=== PATIENT | male | born 1940 | race African-American/Black ===

== ENCOUNTER → 2017-06-01 | Outpatient (CLI) | payer MEDICARE, BC ==
[2014-06-24 12:48] VITALS: BP 114/65
[~2017-06-01] MED LIST: ACET500T68 PO; ASPI-482 PO; MULT-697 PO; OMEG1CAP6 PO; TAMS0.4C97 PO
[2017-06-01 09:26] LABS: BASO % 1 % (0-3); EOS % 1 % (0-3); HEMATOCRIT 38.4 % (39.0-53.0); HEMOGLOBIN 12.6 g/dL (13.0-17.5); LYMPH # 1.9 x10^3/uL (1.0-4.8); LYMPH % 48 % (24-48); MEAN CORPUSCULAR HEMOGLOBIN 27 pg (25-35); MEAN CORPUSCULAR HGB CONC 33 g/dL (31-37); MEAN CORPUSCULAR VOLUME 83 fL (79-100); MONO % 11 % (0-9); NEUT % 40 % (31-73); PLATELET COUNT 210 x10^3/uL (140-400); RED CELL DISTRIBUTION WIDTH 14.7 % (11.5-14.5); WHITE BLOOD COUNT 4.1 x10^3/uL (4.0-11.0)
[2017-06-01 09:33] LABS: ALBUMIN 3.6 g/dL (3.4-5.0); CALCIUM 9.1 mg/dL (8.5-10.1); CREATININE 1.3 mg/dL (0.7-1.3); GFR 65.1; POTASSIUM 4.3 mmol/L (3.5-5.1)
[2017-06-01 09:40] LABS: PROTHROMBIN TIME PATIENT 12.3 SEC (11.7-14.0)
[2017-06-01 11:05] LABS: BILIRUBIN,URINE NEGATIVE (NEG); GLUCOSE,URINE NEGATIVE (NEG); NITRITE,URINE NEGATIVE (NEG); PH,URINE 5.5; PROTEIN,URINE NEGATIVE (NEG-TRACE); UROBILINOGEN,URINE 0.2 mg/dL (0.2 mg/dL)
[2017-06-01 11:31] LABS: BACTERIA,URINE FEW /HPF (0-FEW); RBC,URINE RARE /HPF (0-2); WBC,URINE RARE /HPF (0-4)
--- NOTE | 2017-06-01 16:57 | RAD ---
Indication preop. Anticipated hip replacement. Frontal and lateral views of the chest were obtained and are compared to an examination 10/31/2004. The heart and pulmonary vessels appear normal. The lungs are clear of acute infiltrates. Chronic changes are noted about the left shoulder. A significant change in the appearance of the chest is not seen. IMPRESSION: No acute finding in the chest
== END | disposition home or self-care (01) ==
LOC: SURGPAT 14:11
PROVIDERS: ATTEND Orthopaedic Surgery Sports Medicine
DX: Z01.818 Encounter for other preprocedural examination (principal); R07.9 Chest pain, unspecified; Z72.0 Tobacco use
CPT/HCPCS: 36415; 71020; 80048; 81001; 82040; 85025; 85610; 85651; 85730; 87641

== ENCOUNTER 2017-06-15 08:54 | Inpatient (IN) | payer MEDICARE, BC ==
[2017-06-15] VITALS (7 sets, daily range): BP systolic 115–139; BP diastolic 72–87
[~2017-06-15] VITALS: Ht 170.2 cm; Wt 94.3 kg
[~2017-06-15 08:54] MED LIST changes: +BACITRACIN 50,000 UNIT in IV NORMAL SALINE 1000ML BAG 1,000 ML IRR ONE; +DEXAMETHASONE SOD PHOS 20 MG/5 ML VIAL. ONE; +HYDROcodone/APAP 7.5/325MG 1 TAB TABLET PO PRN; +HYDROmorphone 2 MG/ML VIAL IV PRN; +IV RINGERS,LACTATED 1000ML 1,000 ML IV SCH; +LIDOCAINE 1% PF 2 ML VIAL. ID PRN; +LIDOCAINE 2% PF Vial for OR 5 ML VIAL. ONE; +MELOXICAM 7.5 MG TABLET PO PRN; +MORPHINE SULFATE 4 MG/ML DISP.SYRIN. IV PRN; +MORPHINE SULFATE 5 MG, KETOROLAC 30 MG, ROPIVacaine 0.5% PF 60 ML, EPINEPHrine 0.5 MG i... INT ART ONE; +ONDANSETRON PF 4 MG/2 ML VIAL. IV PRN; +ONDANSETRON PF 4 MG/2 ML VIAL. ONE; +PHENYLEPHRINE in 0.9% NACL PF 1 MG/10 ML DISP.SYRIN. IV ONE; +PROCHLORPERAZINE 10 MG/2 ML VIAL. IV PRN; +PROPOFOL 20 ML IV ONE; +SUCCINYLCHOLINE 200 MG/10 ML VIAL. ONE; +TRANEXAMIC ACID 1,000 MG in IV NS 50ML -- 1ST BAG INJ ONE; +TRANEXAMIC ACID 1,000 MG in IV NS 50ML -- 2ND BAG INJ ONE; +fentaNYL PF VIAL 100 MCG/2 ML VIAL IV PRN; +fentaNYL PF VIAL 100 MCG/2 ML VIAL ONE
--- NOTE | 2017-06-15 09:27 | PDOC ---
BRIEF OPERATIVE NOTE Date: Jun 15, 2017 Pre-Op Diagnosis L hip DJD Post-Op Diagnosis same Procedure Performed L SUMAYA Surgeon Crystal Acct Exec Jayden Anesthesiologist Edenilson Anesthesia Type: General, Local Blood Loss see op report Complications none MARTIN SEAY II, MD Jun 15, 2017 09:27
[2017-06-15] MEDS ORDERED: fentaNYL PF VIAL 100 MCG/2 ML VIAL IV PRN ×2 (09:30)
[2017-06-15] MEDS ORDERED: traMADol 50 MG TABLET PO PRN ×2 (09:30)
[2017-06-15] MEDS ORDERED: MORPHINE SULFATE 10 MG/ML VIAL. IV PRN (09:30)
[2017-06-15] MEDS ORDERED: PROCHLORPERAZINE 5 MG TABLET. PO PRN (09:30)
[2017-06-15] MEDS ORDERED: 0.9 % SODIUM CHLORIDE 10 ML DISP.SYRIN. IV PRN (09:30)
[2017-06-15] MEDS ORDERED: PROCHLORPERAZINE 10 MG/2 ML VIAL. IV PRN (09:30)
[2017-06-15] MEDS ORDERED: oxyCODONE/APAP 5/325 1 TAB TABLET PO PRN (09:30)
[2017-06-15] MEDS ORDERED: DEXTROSE 50% 25 GM / 50ML DISP.SYRIN. IV PRN (09:30)
[2017-06-15] MEDS ORDERED: oxyCODONE/APAP 7.5/325 1 TAB TABLET PO PRN (09:30)
[2017-06-15] MEDS ORDERED: MORPHINE SULFATE 4 MG/ML DISP.SYRIN. IV PRN ×2 (09:30)
[2017-06-15] MEDS ORDERED: CALCIUM CARBONATE 500 MG TAB.CHEW PO PRN (09:30)
[2017-06-15] MEDS ORDERED: MORPHINE SULFATE 2 MG/ML DISP.SYRIN. IV PRN (09:30)
[2017-06-15] MEDS ORDERED: HYDROcodone/APAP 10/325 1 TAB TABLET PO PRN (09:30)
[2017-06-15] MEDS ORDERED: ACETAMINOPHEN 325 MG TABLET. PO PRN (09:30)
[2017-06-15] MEDS ORDERED: ZOLPIDEM 5 MG TABLET. PO PRN (09:30)
[2017-06-15] MEDS ORDERED: METOCLOPRAMIDE HCL 10 MG/2 ML VIAL. IV PRN (09:30)
[2017-06-15] MEDS ORDERED: diphenhydrAMINE 50 MG/ML VIAL IV PRN (09:30)
[2017-06-15] MEDS ORDERED: fentaNYL PF VIAL 100 MCG/2 ML VIAL ONE (10:31)
[2017-06-15] MEDS ORDERED: NEOSTIGMINE METHYLSULFATE 5 MG/5 ML SYRINGE. ONE (10:49)
[2017-06-15] MEDS ORDERED: GLYCOPYRROLATE 1 MG/5 ML VIAL. ONE (10:49)
[2017-06-15] MEDS: fentaNYL PF VIAL 100 MCG/2 ML VIAL IV PRN ×4 (12:39→13:35)
--- NOTE | 2017-06-15 12:54 | RAD ---
Portable pelvis, 06/15/2017: History: Postop hip replacement Comparison is made to a study from 04/30/2017. A left total hip prosthesis has been placed. It appears to be in satisfactory position. There is mild to moderate degenerative change at the right hip joint. Chronic patchy sclerosis with trabecular and cortical thickening is again noted, perhaps related to the given history of sickle cell trait. Scattered arterial calcifications are present. There is no evidence of a retained surgical instrument, needle or radiopaque sponge.
--- NOTE | 2017-06-15 12:58 | OP ---
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 PROCEDURE PERFORMED: Left total hip arthroplasty. COMPLICATIONS: None. ESTIMATED BLOOD LOSS: 300 mL. COMPONENTS INSERTED: 1. Julien and Nephew size 4 standard offset Anthology femoral component with a 36 cobalt chrome -3 head. 2. A 52 mm outer diameter acetabular cup was used with a 20-degree posteriorly directed elevated liner. CLOTH OPENER HAND: Nj Carpenter. ANESTHESIA: General. COMPLICATIONS: None. REASON FOR PROCEDURE: The patient is a very pleasant 76-year-old gentleman who has tried and failed conservative therapy such as an exercise program, anti-inflammatories, and intra-articular injections for his hip pain. His pain was severe and progressive despite these conservative therapies and was interfering with his activities of daily living and therefore, we had discussion of risks, benefits, alternatives not to proceeding with the above surgery and he elected to proceed. DESCRIPTION OF PROCEDURE: The patient was greeted in the preoperative area by myself. Correct extremity was marked and verified. He was taken to the operative suite and antibiotics were started en route. Once in the OR, transferred gently supine to the OR bed and had successful induction of general anesthetic. We then proceeded to lay him in a lateral decubitus position with the left side up. All down pressure points were padded and we used an axillary roll. He was secured to the bed with our hip positioning device. We then proceeded to prep and drape left lower extremity and hip in our usual sterile fashion and conducted a standard preoperative timeout. I then palpated and marked the surface anatomy and humphrey a line for my standard posterolateral skin incision and incised skin in accordance with this. I dissected the subcutaneous tissue and cauterized bleeders as they were encountered with electrocautery. I identified the fascia and used a Do elevator to sweep aside the adherent subcutaneous tissue for later identification and repair. Padded Brendon was brought in to keep his hip abducted and I incised fascia in line with the skin incision and bluntly split the gluteus mary. I excised bursal tissue and took down the quadratus and piriformis and tagged the piriformis for later repair. I incised the hip capsule in a Z-plasty type incision and tagged the ends of this as well. I was then able to dislocate the femoral head from the acetabulum. I made jeong with electrocautery at his greater and lesser trochanter regions as well as center of his femoral head and then made my measurements for length and offset. I then palpated for his lesser trochanter and again humphrey a line with electrocautery on his femoral neck for my femoral neck cut and placed 2 Homans' behind this. I then made my neck cut and delivered the femoral head from the operative field. We then repositioned the leg and I placed my anterior and posterior acetabular retractors. I excised the labrum and the soft tissue from the fossa of the acetabulum. I identified the transverse acetabular ligament. He had some small osteophytes, which I took down posteriorly and superiorly. After this, I began reaming, referencing his jamul anatomy in the transverse acetabular ligament. I then reamed up to a size 52, which gave a good bleeding bony bed. I then impacted my cup into position using the cross bar attachment on the transverse acetabular ligament for reference. I then placed 2 screws in the posterior column. I then irrigated out the operative field and impacted my cup into position with the elevation directed posteriorly. I then repositioned leg, delivered the proximal femur in the operative field with the assistance of proximal femoral elevator. I then used a marthaie cutting osteotome to gain entry to the femur followed by a canal finding reamer. I then used a lateralizing reamer. After this, I began broaching and broached up to a size 4, which gave a good fit and fill proximally. I then trialed various head and neck sizes and felt the above combination gave best christian of intraoperative measurements on his leg length when the hip was reduced. There was no impingement anteriorly or posteriorly. I then dislocated the hip, removed all trial components and thoroughly irrigated out the operative field and femoral canal again and then impacted my stem into place. I then trialed the 0 and -3 heads again, I was unable to reduce with the [address]. I compared new measurements to my initial ones just to ensure that I had fully seated the stem which I was confident I had. I then washed and dried the Simon taper region, placed my -3 cobalt chrome head and impacted in position. I then irrigated out the acetabulum and dried it out. The hip was then reduced. Again, I was happy with the range of motion, stability, and leg length. I then closed capsule with simple interrupted #2 Ethibond. Piriformis was reapproximated through drill holes. After this, I injected my periarticular mixture and then closed the fascia with running #2 Quill. Prior to completion of wound closure, all counts were reported correct x 2. I then closed the subcutaneous tissue with inverted interrupted 2-0 Vicryl followed by running 4-0 Monocryl in a subcuticular fashion. We then applied our Julien and Nephew ELIZABETH wound dressing. The patient was then awakened from anesthesia and transferred gently supine to the recovery room cart and taken to PACU in stable and extubated condition. Postoperative plan is to admit him to the joint center for care and observation. He will receive DVT and antibiotic prophylaxis as well as therapy and IV pain medicine most likely. MARTIN SEAY MD DR: KANDI/kenzie JOB#: [id number] / [id number] LEYDI
[2017-06-15] MEDS ORDERED: IV DEXTROSE 5 %-0.45 % NACL 1,000 ML IV SCH (14:00)
[2017-06-15 16:23] LABS: INR 1.2 (0.8-1.1); PROTHROMBIN TIME PATIENT 14.6 SEC (11.7-14.0)
[2017-06-15] MEDS ORDERED: WARFARIN 7.5 MG TABLET. PO ONE ×2 (16:30→17:00)
[2017-06-15] MEDS: FERROUS SULFATE 325 MG TABLET. PO SCH (16:47)
[2017-06-15] MEDS ORDERED: KETOROLAC 30 MG, BUPIVACAINE MPF 0.25% 20 ML, EPINEPHrine 0.5 MG in TOTAL VOLUME SYRING... INT ART SCH (18:00)
[2017-06-15] MEDS: CELECOXIB 200 MG CAPSULE. PO SCH (20:36)
[2017-06-15] MEDS: HYDROcodone/APAP 7.5/325MG 1 TAB TABLET PO PRN ×2 (20:37→23:43)
[2017-06-16 02:30] VITALS: BP 112/72
[2017-06-16 03:44] LABS: HEMATOCRIT 30.6 % (39.0-53.0); HEMOGLOBIN 10.3 g/dL (13.0-17.5)
[2017-06-16 04:02] LABS: INR 1.3 (0.8-1.1)
[2017-06-16] MEDS ORDERED: MAGNESIUM HYDROXIDE 2,400 MG/30 ML ORAL.SUSP. PO PRN (06:00)
[2017-06-16 06:34] VITALS: BP 113/74
[2017-06-16] MEDS: HYDROcodone/APAP 7.5/325MG 1 TAB TABLET PO PRN ×4 (07:56→21:19)
[2017-06-16] MEDS: CELECOXIB 200 MG CAPSULE. PO SCH ×2 (07:56→21:18)
[2017-06-16] MEDS: TAMSULOSIN 0.4 MG CAP.ER.24H. PO SCH (07:56)
[2017-06-16] MEDS: SENNOSIDES/DOCUSATE 8.6/50MG TABLET. PO SCH (07:56)
[2017-06-16] MEDS: MULTIVITAMIN with MINERAL TABLET. PO SCH (07:56)
[2017-06-16] MEDS: FERROUS SULFATE 325 MG TABLET. PO SCH ×2 (07:56→17:14)
--- NOTE | 2017-06-16 08:13 | PDOC ---
ORTHO PROGRESS NOTES Subjective Pain doing ok, no complaints Vitals Vital Signs Date Time Temp Pulse Resp B/P (MAP) Pulse Ox O2 Delivery O2 Flow Rate FiO2 06/16/17 07:56 Room Air 06/16/17 06:34 98.4 61 18 113/74 (87) 97 98.4 06/15/17 15:45 10.0 Labs Laboratory Tests Test 06/15/17 09:40 06/15/17 15:30 06/16/17 03:30 Activated Partial Thromboplast Time 30 SEC (24-38) Prothrombin Time 14.6 SEC (11.7-14.0) 15.0 SEC (11.7-14.0) Prothromb Time International Ratio 1.2 (0.8-1.1) 1.3 (0.8-1.1) Hemoglobin 10.3 g/dL (13.0-17.5) Hematocrit 30.6 % (39.0-53.0) Mean Corpuscular Hemoglobin Concent 34 g/dL (31-37) Laboratory Tests Test 06/15/17 09:40 06/15/17 15:30 06/16/17 03:30 Activated Partial Thromboplast Time 30 SEC (24-38) Prothrombin Time 14.6 SEC (11.7-14.0) 15.0 SEC (11.7-14.0) Prothromb Time International Ratio 1.2 (0.8-1.1) 1.3 (0.8-1.1) Hemoglobin 10.3 g/dL (13.0-17.5) Hematocrit 30.6 % (39.0-53.0) Mean Corpuscular Hemoglobin Concent 34 g/dL (31-37) Notes A and A in bed incision ok normal motor and sensation distally Assessment and Plan PT/OT cont pain regiment MARTIN SEAY II, MD Jun 16, 2017 08:13
[2017-06-16] MEDS ORDERED: BISACODYL 10 MG SUPP.RECT. PR PRN (16:00)
[2017-06-16] MEDS ORDERED: WARFARIN 5 MG TABLET. PO ONE (16:00)
[2017-06-16 18:27] VITALS: BP 96/58
[2017-06-17] MEDS: HYDROcodone/APAP 7.5/325MG 1 TAB TABLET PO PRN ×4 (04:47→16:20)
[2017-06-17 06:22] VITALS: BP 102/65
[2017-06-17 06:53] LABS: INR 2.1 (0.8-1.1)
[2017-06-17 06:58] LABS: HEMATOCRIT 31.7 % (39.0-53.0); HEMOGLOBIN 10.5 g/dL (13.0-17.5)
[2017-06-17] MEDS: MULTIVITAMIN with MINERAL TABLET. PO SCH (08:25)
[2017-06-17] MEDS: FERROUS SULFATE 325 MG TABLET. PO SCH ×2 (08:25→16:21)
[2017-06-17] MEDS: CELECOXIB 200 MG CAPSULE. PO SCH (08:26)
[2017-06-17] MEDS: TAMSULOSIN 0.4 MG CAP.ER.24H. PO SCH (08:26)
[2017-06-17] MEDS: SENNOSIDES/DOCUSATE 8.6/50MG TABLET. PO SCH (08:26)
--- NOTE | 2017-06-17 12:03 | DISCH ---
DISCHARGE WITH HOME HEALTH DISCHARGE INFORMATION: Discharge Date: Jun 17, 2017 Final Diagnosis: L SUMAYA Condition on Discharge: Stable HOME HEALTH: Face to Face: I certify this patient is under my care and that I, or a nurse practitioner or physician's faculty research assistant working with me, had a face to face encounter that meets the physician face to face encounter requirements with this patient on []. Medical Condition(s): S/P Joint Replacement Retirement For: Other: (INR draws) Physical Therapy For: Evalulation/Treatment Occupational Therapy For: Evaluation/Treatment FOLLOW-UP: Follow up with: Crystal in 2wks CERTIFICATION STATEMENT: Certification Statement: Certification Statement: Based on the above finding, I certify that this patient is confined to the home and needs intermittent group home care, physical therapy and/or speech therapy, or continues to need occupational therapy.~ This patient is under my care, and I have initiated the establishment of the plan of care.~ This patient will be followed by myself or a community physician who will periodically review the plan of care. MARTIN SEAY II, MD Jun 17, 2017 12:03
--- NOTE | 2017-06-17 12:05 | PDOC ---
ORTHO PROGRESS NOTES Subjective Pain tolerable, no complaints Vitals Vital Signs Date Time Temp Pulse Resp B/P (MAP) Pulse Ox O2 Delivery O2 Flow Rate FiO2 06/17/17 09:30 16 Room Air 06/17/17 06:22 97.8 56 102/65 (77) 20 97.8 Labs Laboratory Tests Test 06/15/17 15:30 06/16/17 03:30 06/17/17 06:02 Prothrombin Time 14.6 SEC (11.7-14.0) 15.0 SEC (11.7-14.0) 22.0 SEC (11.7-14.0) Prothromb Time International Ratio 1.2 (0.8-1.1) 1.3 (0.8-1.1) 2.1 (0.8-1.1) Hemoglobin 10.3 g/dL (13.0-17.5) 10.5 g/dL (13.0-17.5) Hematocrit 30.6 % (39.0-53.0) 31.7 % (39.0-53.0) Mean Corpuscular Hemoglobin Concent 34 g/dL (31-37) 33 g/dL (31-37) Laboratory Tests Test 06/17/17 06:02 Hemoglobin 10.5 g/dL (13.0-17.5) Hematocrit 31.7 % (39.0-53.0) Mean Corpuscular Hemoglobin Concent 33 g/dL (31-37) Prothrombin Time 22.0 SEC (11.7-14.0) Prothromb Time International Ratio 2.1 (0.8-1.1) Notes A and A in chair remains NVI, incision ok Assessment and Plan ok to go home with [facility] MARTIN SEAY II, MD Jun 17, 2017 12:04
[2017-06-17] MEDS ORDERED: HYDR-2762 PO (13:26)
--- NOTE | 2017-06-17 13:58 | PATHOLOGY ---
PATHOLOGY REPORT * * * * * * * * FINAL DIAGNOSIS: Femoral head and segments of soft tissue, left total hip arthroplasty: - Degenerative arthritis. COMMENT: There is no evidence of malignancy. (JPM:; 06/17/2017) REPORT ELECTRONICALLY SIGNED BY: Zeke New M.D. DATE/TIME: 06/17/2017 13:46 * * * * * * * * GROSS PATHOLOGY: Received in formalin labeled "Karol Haley, left hip bone and tissue," is a femoral head measuring 4.6 x 4.6 x 5.2 cm in greatest dimensions admixed with yellow-brasher to pink-brasher soft tissue measuring 5.2 x 4.5 x 1.0 cm in aggregate dimensions. The articular surface is light brasher and granular with no gross evidence of eburnation. Sectioning the bone reveals light brasher cut surfaces. Certified Technician Specialist tissue is submitted in cassette A1, following decalcification. (CAA; 06/16/2017) INITIAL CPT CODE(S): A; 46424, 63286 Professional services performed [place] [facility] [address] Technical services performed by [facility] at [address] [place] [address] [address] [address]. SPECIMEN(S) RECEIVED: A.Left hip bone and tissue CLINICAL HISTORY: Other secondary osteoarthritis of left hip, Paget's bone disease PATIENT: KAROL HALEY /AGE: 12 1940 (Age: 76) PATIENT #: [id number] ALT CASE #: SPECIMEN COLLECTION DATE: 06/15/2017 SPECIMEN RECEIVED DATE: 06/15/2017 [facility] - [address] [place] [address] - PHONE: [phone] * * * END OF REPORT * * *
[2017-06-17] MEDS ORDERED: WARFARIN 1 MG TABLET. PO ONE (14:00)
[2017-06-17] MEDS ORDERED: WARF1TAB74 PO (14:39)
[2017-06-17 17:45] VITALS: BP 92/55
--- NOTE | 2017-06-25 14:58 | PDOC3 ---
Discharge Summary Visit Information Date of Admission: Jun 15, 2017 Date of Discharge: Jun 17, 2017 Admitting Diagnosis: advanced left hip primary degenerative joint disease Brief Hospital Course Allergies Allergies Coded Allergies Type Severity Reaction Last Updated Verified No Known Drug Allergies 01/05/14 No Brief Hospital Course Mr. Haley is a 76 old male who presented to my outpatient orthopedic surgery clinic with complaints of severe and progressive pain that failed conservative therapies including injections. We had a discussion of the risks, benefits, alternatives to total hip arthroplasty and he elected to proceed. He tolerated surgery well cover well from anesthesia in the PACU. He was then taken to the joint Center for care and observation. He did receive PT, OT, DVT and antibiotic prophylaxis. He recovered well from surgery and remained hemodynamically stable and afebrile throughout the hospitalization. Pain was controlled on oral pain medicine at the time of discharge. Good progress was made with therapy throughout the hospitalization, and activities of daily living were accomplished by the patient. The incision was clean dry and intact and the operative extremity had normal motor and sensation. Discharge Information Condition at Discharge: Stable Follow Up: Weeks Disposition/Orders: D/C to Home w/ HH Scheduled Multivitamin/Iron/Folic Acid (Centrum Adults Tablet), 1 EACH PO DAILY, (Reported ) [place]-3 Fatty Acids/Fish Oil (Fish Oil 1,000 Mg Capsule), 1 EACH PO DAILY, ( Reported) Tamsulosin Hcl (Flomax), 0.8 MG PO DAILY, (Reported) Warfarin Sodium (Coumadin), 1 TAB PO DAILY, (Reported) Scheduled PRN Hydrocodone Bit/Acetaminophen (Hydrocodone-Apap 7.5-325 ), 1 TAB PO PRN Q3HRS PRN for PAIN, (Reported) Patient Instructions Patient Instructions He will be discharged home. Home health care has been set up. We will get him started on outpatient therapy as soon as we are able. The patient will be on Coumadin for a month. He can weight-bear as tolerated. Worrisome signs and symptoms that should prompt a phone call to my office were discussed. We'll see him back in 2 weeks, sooner should a problem arise. MARTIN SEAY II, MD Jun 25, 2017 14:58
== END 2017-06-17 18:00 | disposition home health service (06) | DRG 470 ==
LOC: OPSVCIP 08:54 → 4 SOUTHEST 13:52
PROVIDERS: ADMIT Orthopaedic Surgery Sports Medicine; ATTEND Orthopaedic Surgery Sports Medicine
PROC: 0SRB0JZ Replacement of Left Hip Joint with Synthetic Substitute, Open Approach (ICD-10-PCS; principal; 2017-06-15 10:00)
DX: M16.12 Unilateral primary osteoarthritis, left hip (principal); D57.1 Sickle-cell disease without crisis; M88.9 Osteitis deformans of unspecified bone; Z87.891 Personal history of nicotine dependence; Z82.49 Family history of ischemic heart disease and other diseases of the circulatory system
CPT/HCPCS: 36415; 72170; 85014; 85018; 85610; 85730; 86850; 86900; 86901; 88304; 88311; J0171; J0330; J0690; J1100; J1885; J2270; J2370; J2405; J2704; J2710; J2795; J3010; J3490; J7030; J7120; 97110; 97116; 97150; 97530; 97535; J2001

== ENCOUNTER → 2018-09-21 | Outpatient (CLI) | payer BC, MEDICARE ==
[~2018-09-21] MED LIST changes: -BACITRACIN 50,000 UNIT in IV NORMAL SALINE 1000ML BAG 1,000 ML IRR ONE; +BARIUM SULFATE 40% (APPLE) 148 GM PWD. PO ONE; -DEXAMETHASONE SOD PHOS 20 MG/5 ML VIAL. ONE; +HYDR-2765 PO; -HYDROcodone/APAP 7.5/325MG 1 TAB TABLET PO PRN; -HYDROmorphone 2 MG/ML VIAL IV PRN; -IV RINGERS,LACTATED 1000ML 1,000 ML IV SCH; -LIDOCAINE 1% PF 2 ML VIAL. ID PRN; -LIDOCAINE 2% PF Vial for OR 5 ML VIAL. ONE; -MELOXICAM 7.5 MG TABLET PO PRN; -MORPHINE SULFATE 4 MG/ML DISP.SYRIN. IV PRN; -MORPHINE SULFATE 5 MG, KETOROLAC 30 MG, ROPIVacaine 0.5% PF 60 ML, EPINEPHrine 0.5 MG i... INT ART ONE; -ONDANSETRON PF 4 MG/2 ML VIAL. IV PRN; -ONDANSETRON PF 4 MG/2 ML VIAL. ONE; -PHENYLEPHRINE in 0.9% NACL PF 1 MG/10 ML DISP.SYRIN. IV ONE; -PROCHLORPERAZINE 10 MG/2 ML VIAL. IV PRN; -PROPOFOL 20 ML IV ONE; -SUCCINYLCHOLINE 200 MG/10 ML VIAL. ONE; -TRANEXAMIC ACID 1,000 MG in IV NS 50ML -- 1ST BAG INJ ONE; -TRANEXAMIC ACID 1,000 MG in IV NS 50ML -- 2ND BAG INJ ONE; +WARF1TAB74 PO; -fentaNYL PF VIAL 100 MCG/2 ML VIAL IV PRN; -fentaNYL PF VIAL 100 MCG/2 ML VIAL ONE
--- NOTE | 2018-09-21 14:50 | RAD ---
Video dysphasia study, 09/21/2018: History: Lump in throat, dysphasia The swallowing mechanism was examined fluoroscopically in the lateral projection while the patient ingested a variety of food materials which with barium. 1.1 minutes of fluoroscopy time was utilized. One video fluoroscopic loop was recorded by a member of the speech Department. The patient demonstrated good oral control of the barium materials. There was prompt initiation of pharyngeal peristalsis. There was normal passage of the majority of the barium bolus into the cervical esophagus. There was no significant laryngeal penetration or aspiration of the thin or thickened materials. There are mild posterior impressions upon the mid to lower cervical esophagus due to cervical spurs. The patient ingested the barium coated solid without difficulty. IMPRESSION: No significant abnormality is detected.
== END | disposition home or self-care (01) ==
LOC: RAD 12:18
PROVIDERS: ATTEND Otolaryngology
DX: R13.10 Dysphagia, unspecified (principal); R22.1 Localized swelling, mass and lump, neck
CPT/HCPCS: 74230; 92611; G8996; G8997; G8998

== ENCOUNTER 2020-04-25 02:57 | Emergency (ER) | payer MEDICARE ==
[~2020-04-25] VITALS: Ht 170.2 cm; Wt 98.0 kg
[~2020-04-25 02:57] MED LIST changes: -BARIUM SULFATE 40% (APPLE) 148 GM PWD. PO ONE; +WARF1TAB2 PO; -WARF1TAB74 PO
--- NOTE | 2020-04-25 03:28 | PHYS DOC ---
Past Medical History Past Medical History: Sickle Cell Disease Past Surgical History: Other Additional Past Surgical Histo: Pituitary Smoking Status: Former Smoker Alcohol Use: Occasionally Drug Use: None General Adult EDM: Chief Complaint: FLANK PAIN HPI: HPI: Patient is a 79 year old male who presents with right lower rib pain that began approximately 1 AM. Patient denies any recent illnesses no fever no cough. Patient describes pain that is worse with palpation of the right lower ribs and right chest wall. Patient says is worse with deep breaths. Patient says he is got mild shortness of breath. Patient denies any urinary symptoms. No nausea or vomiting. Patient denies any abdominal pain Review of Systems: Review of Systems: Constitutional: Denies fever or chills. [] Eyes: Denies change in visual acuity. [] HENT: Denies nasal congestion or sore throat. [] Respiratory: Denies cough but has mild shortness of breath Cardiovascular: Complains of right-sided chest pain but no swelling GI: Complains of some pain in the right upper quadrant but no nausea, vomiting, bloody stools or diarrhea. [] : Denies dysuria. [] Musculoskeletal: Has right thoracic pain but no joint pain Integument: Denies rash. [] Neurologic: Denies headache, focal weakness or sensory changes. [] Endocrine: Denies polyuria or polydipsia. [] Lymphatic: Denies swollen glands. [] Psychiatric: Denies depression or anxiety. [] Heart Score: Risk Factors: Risk Factors: DM, Current or recent (<one month) smoker, HTN, HLP, family history of CAD, obesity. Risk Scores: Score 0 - 3: 2.5% MACE over next 6 weeks - Discharge Home Score 4 - 6: 20.3% MACE over next 6 weeks - Admit for Clinical Observation Score 7 - 10: 72.7% MACE over next 6 weeks - Early Invasive Strategies Allergies: Allergies: Allergies Coded Allergies Type Severity Reaction Last Updated Verified No Known Drug Allergies 01/05/14 No Physical Exam: PE: Constitutional: Well developed, well nourished, no acute distress, non-toxic appearance. [] HENT: Normocephalic, atraumatic, bilateral external ears normal, no trismus, nose normal. [] Eyes: PERRLA, EOMI, conjunctiva normal, no discharge. [] Neck: Normal range of motion, no tenderness, supple, no stridor. [] Cardiovascular:Heart rate regular rhythm, peripheral pulses intact cap refill brisk Lungs & Thorax: Bilateral breath sounds clear, no respiratory distress, tender to palpate on the right lower ribs right thoracic area Abdomen: , soft, mild tenderness to the right upper quadrant without guarding or rebound, no masses, no pulsatile masses. [] Skin: Warm, dry, no erythema, no rash. [] Back: No tenderness, no CVA tenderness. [] Tender to palpate on the right thoracic area Extremities: No tenderness, no cyanosis, no clubbing, ROM intact, no edema. [] Neurologic: Alert and oriented X 3, normal motor function, normal sensory function, no focal deficits noted. [] Psychologic: Affect normal, judgement normal, mood normal. [] Current Patient Data: Labs: Laboratory Tests Test 04/25/20 03:35 White Blood Count 3.8 x10^3/uL Red Blood Count 4.50 x10^6/uL Hemoglobin 12.6 g/dL Hematocrit 37.0 % Mean Corpuscular Volume 82 fL Mean Corpuscular Hemoglobin 28 pg Mean Corpuscular Hemoglobin Concent 34 g/dL Red Cell Distribution Width 14.3 % Platelet Count 224 x10^3/uL Neutrophils (%) (Auto) 43 % Lymphocytes (%) (Auto) 48 % Monocytes (%) (Auto) 8 % Eosinophils (%) (Auto) 0 % Basophils (%) (Auto) 1 % Neutrophils # (Auto) 1.6 x10^3/uL Lymphocytes # (Auto) 1.9 x10^3/uL Monocytes # (Auto) 0.3 x10^3/uL Eosinophils # (Auto) 0.0 x10^3/uL Basophils # (Auto) 0.0 x10^3/uL D-Dimer (Bren) 0.91 ug/mlFEU Sodium Level 142 mmol/L Potassium Level 4.0 mmol/L Chloride Level 107 mmol/L Carbon Dioxide Level 25 mmol/L Anion Gap 10 Blood Urea Nitrogen 16 mg/dL Creatinine 1.4 mg/dL Estimated GFR (Cockcroft-Gault) 59.3 BUN/Creatinine Ratio 11 Glucose Level 87 mg/dL Calcium Level 8.7 mg/dL Total Bilirubin 0.7 mg/dL Aspartate Amino Transf (AST/SGOT) 26 U/L Alanine Aminotransferase (ALT/SGPT) 23 U/L Alkaline Phosphatase 266 U/L Troponin I Quantitative < 0.017 ng/mL GC-Dvo-V-Type Natriuretic Peptide 214 pg/mL Total Protein 7.0 g/dL Albumin 3.6 g/dL Albumin/Globulin Ratio 1.1 Lipase 136 U/L Current Medications Medications (Trade) Dose Ordered Sig/Kayden Route PRN Reason Start Time Stop Time Status Last Admin Dose Admin Ketorolac Tromethamine (Toradol 15mg Vial) 15 mg 1X ONCE IVP 04/25/20 03:30 04/25/20 03:31 DC 04/25/20 03:42 Iohexol (Omnipaque 350 Mg/ml) 70 ml 1X ONCE IV 04/25/20 04:30 04/25/20 04:31 DC 04/25/20 05:22 Info (CONTRAST GIVEN -- Rx MONITORING) 1 each PRN DAILY PRN MC SEE COMMENTS 04/25/20 04:30 04/27/20 04:29 Vital Signs: Vital Signs Date Time Temp Pulse Resp B/P (MAP) Pulse Ox O2 Delivery O2 Flow Rate FiO2 04/25/20 04:00 97.5 59 18 125/63 (83) 98 Room Air 97.5 EKG: EKG: EKG interpreted by me sinus bradycardia with a rate of 59 left axis deviation normal ST segments normal intervals Radiology/Procedures: Radiology/Procedures: [][facility] [address] [place] [address] IMAGING REPORT Signed PATIENT: KAROL SINGH ACCOUNT: [id number] : 1940 LOCATION: ER AGE: 79 SEX: M EXAM STATUS: REG ER ORD. PHYSICIAN: SUSAN TOLLIVER MD REASON: RIGHT SIDED CHEST PAIN PROCEDURE: PORTABLE CHEST 1V AP chest x-ray HISTORY: Right-sided chest pain. FINDINGS: Heart size normal. Mediastinal silhouette is normal. No pneumothorax, pulmonary opacities or pleural effusions. Mild upper thoracic scoliosis. IMPRESSION: No acute process. Electronically signed by: Marco Brown MD (04/25/2020 4:15 AM) [facility] DICTATED and SIGNED BY: MARCO BROWN MD DATE: 04/25/20 0415 [facility] [address] [place], [place] [id number] IMAGING REPORT Signed PATIENT: KAROL SINGH ACCOUNT: [id number] : 1940 LOCATION: ER AGE: 79 SEX: M EXAM STATUS: REG ER ORD. PHYSICIAN: SUSAN TOLLIVER MD REASON: ruq pain PROCEDURE: ABDOMEN COMPLETE EXAM: ABDOMINAL ULTRASOUND. HISTORY: Right upper quadrant abdominal pain. COMPARISON: CT angiogram chest abdomen of 04/25/2020. FINDINGS: Sonographic evaluation of the abdomen was performed. The liver is diffusely echogenic, compatible fatty infiltration. There are no focal lesions. The spleen measures 7.5 cm. The gallbladder contains a small amount of layering sludge without evidence of stones, wall thickening or pericholecystic fluid. There is no sonographic Al sign. The common duct measures 4 mm. Pancreas is obscured by bowel gas. The right kidney measures 10.5 x 5.0 x 4.4 cm. Cortical thickness and echogenicity are preserved. There is no hydronephrosis. The left kidney measures 10.0 x 4.8 x 4.6 cm. Cortical thickness and echogenicity are preserved. There is no hydronephrosis. Visualized IVC is unremarkable. Abdominal aorta is obscured by bowel gas. IMPRESSION: 1. Biliary sludge in the gallbladder and mild hepatic steatosis. Otherwise unremarkable complete abdominal ultrasound. Electronically signed by: Alberta Mckeon MD (04/25/2020 8:07 AM) [id number] DICTATED and SIGNED BY: ALBERTA MCKEON MD DATE: 04/25/20 0807 Course & Med Decision Making: Course & Med Decision Making Pertinent Labs and Imaging studies reviewed. (See chart for details) [] 79-year-old male presents with right lower rib /right upper quadrant pain. Patient had elevated d-dimer therefore had a CT angiogram which did not show pulmonary embolism. Patient has subtle groundglass appearance to the right lungs. Patient will be swabbed for COVID. On reassessment patient is resting and has intermittent pain. I think his pain is most likely musculoskeletal. It also could be shingles pain before the rash appears. Patient will be stable for discharge on antibiotics and told to isolate till the coronavirus results come back. COVID-19 CRITERIA: The patient was evaluated during the global COVID-19 pandemic, and that diagnosis was suspected/considered upon their initial presentation. Their evaluation, treatment and testing was consistent with current guidelines for patients who present with complaints or symptoms that may be related to COVID-19. Dragon Disclaimer: Dragon Disclaimer: This electronic medical record was generated, in whole or in part, using a voice recognition dictation system. Departure Departure Impression: Primary Impression: Right-sided chest wall pain Additional Impressions: Chest pain Right upper quadrant pain Disposition: 01 HOME, SELF-CARE Condition: STABLE Referrals: [facility] (PCP) 2-3 DAYS Patient Instructions: Chest Wall Pain Additional Instructions: You have been tested for or diagnosed with COVID-19. It is an infection caused by a new type of coronavirus. COVID-19 will cause cold-like or mild flu symptoms in most. It can cause more severe symptoms like problems breathing in some. There is no treatment for COVID-19. The body will clear the infection over time. Self-care will help to ease discomfort. Steps to Take: Self-Care Rest as needed. Healthy habits may help you feel better. Steps include: Choose healthy foods including fruits and vegetables. Drink water throughout the day. Get plenty of sleep each night. If you smoke, try to quit. It may ease breathing. Avoid alcohol. Keep Others Healthy The virus can spread to others. Droplets are released every time you sneeze or cough. The droplets can get into the mouth, nose, or eyes of people near you and lead to infection. To lower the chances of spreading COVID-19 to others: Stay at home until your doctor has said it is safe to leave. If you tested positive this will mean staying isolated until both of the following are true: At least 7 days have passed since the start of illness. You are free of fever for at least 72 hours without the use of medicine. During this time: - Avoid public areas, events, or transportation. Do not return to work or school until your doctor has said it is safe to do so. - Call ahead if you need to go to a medical center. Let them know you may have COVID-19. It will help them guide you where to go. They may also ask you to wear a facemask when you come to the office. - If you call for emergency medical services, let them know you may have COVID- 19. While at home: - Try to avoid close contact with others. Stay about 6 feet away. - If possible, spend most of your time in a separate room from others. - Use a face mask if you will be in close contact with others such as sharing a room or vehicle. - Have someone wipe down common surfaces in the home. Use household gas shovel operator every day on areas like doorknobs, counters, or sinks. - Cough or sneeze into a tissue. Throw the tissue away right after use. If a tissue is not available, cough or sneeze into your elbow. - Wash your hands often. Wash them after sneezing or coughing. Use soap and water and wash for at least 20 seconds. Alcohol based hand hall cleaner can be used if soap and water is not available. - Do not prepare food for others. Avoid sharing personal items like forks, spoons, or toothbrushes. - Avoid close contact with pets while you are sick. There is no evidence of the virus passing to pets. This is a safety step until more is known about this virus. Isolation can be frustrating. Social interaction can help. Keep in touch with friends and family through phone and tech options. You can still interact with others in your home, just keep a safe distance of about 6 feet. Follow-up: Your doctors office will check in with you to see if there are any changes in your health. You may be asked to keep track of symptoms to share with them. They will also let you know when you are clear to be in public again. Problems to Look Out For: Contact your doctor if your recovery is not going as you expect. Get emergency care if you have problems such as: - Trouble breathing - Nonstop chest pain or pressure - Changes in awareness, confusion, or problems waking - Lips or face have bluish color - Worsening of symptoms If you think you have an emergency, call for emergency medical services right away. As taken from [facility] EMERGENCY DEPARTMENT GENERAL DISCHARGE INSTRUCTIONS THANK YOU for coming to [facility] Emergency Department (ED) today and trusting us with your care. We trust that you had a positive experience in our Emergency Department. If you wish to speak to the department Management you can contact the department of mathematics chair at . YOUR FOLLOW UP INSTRUCTIONS ARE FOLLOWS: Do you have a private doctor? If you do not have a private doctor, please ask for a resource list of physicians or clinics that may be able to assist you with follow up care. The Emergency Physician has interpreted your x-rays. The X-ray specialist will also review them. If there is a change in the findings you will be notified in 48 hours when at all possible. A lab test or lab culture may have been done, your results will be reviewed and you will be notified if you need a change in treatment. ADDITIONAL INSTRUCTIONS AND INFORMATION Your care today has been supervised by a physician who is specially trained in emergency care. Many problems require more than one evaluation for a complete diagnosis and treatment. We recommend that you schedule your follow up appointment as recommended to ensure complete treatment of your illness or injury. If you are unable to obtain follow up care and continue to have a problem, or if your condition worsens we recommend that you return to the ED. We are not able to safely determine your condition over the phone nor are we able to give sound medical advice over the phone. For these safety reasons, if you call for medical advice we will ask you to come to the ED for further evaluation If you have any questions regarding these discharge instructions please call the ED at . SAFETY INFORMATION In the interest of safety, wellness, and injury prevention; we encourage you to wear your seatbelt, if you smoke; quit smoking, and we encourage your family to use protective helmet for bicycling and other sporting events that present an increased risk for head injury. IF YOUR SYMPTOMS WORSEN OR NEW SYMPTOMS DEVELOP, OR YOU HAVE CONCERNS ABOUT YOUR CONDITION; OR IF YOUR CONDITION WORSENS WHILE YOU ARE WAITING FOR YOUR FOLLOW UP APPOINTMENT; EITHER CONTACT YOUR PRIMARY CARE DOCTOR, THE PHYSICIAN WHOSE NAME AND NUMBER YOU WERE GIVEN, OR RETURN TO THE ED IMMEDIATELY. Scripts Azithromycin (ZITHROMAX) 250 Mg Tablet 1 PKG PO UD, #6 TAB Prov: SUSAN TOLLIVER MD 04/25/20 Ibuprofen (IBUPROFEN) 600 Mg Tablet 600 MG PO PRN Q6HRS PRN for PAIN, #20 TAB take with food or milk Prov: SUSAN TOLLIVER MD 04/25/20 Justicifation of Admission Dx: Justifications for Admission: Justification of Admission Dx: N/A SUSAN TOLLIVER MD Apr 25, 2020 03:28
[2020-04-25] MEDS ORDERED: KETOROLAC 15 MG/ML VIAL. IVP ONE (03:30)
[2020-04-25 03:47] LABS: BASO % 1 % (0-3); EOS % 0 % (0-3); HEMOGLOBIN 12.6 g/dL (13.0-17.5); LYMPH # 1.9 x10^3/uL (1.0-4.8); LYMPH % 48 % (24-48); MEAN CORPUSCULAR HEMOGLOBIN 28 pg (25-35); MEAN CORPUSCULAR HGB CONC 34 g/dL (31-37); MEAN CORPUSCULAR VOLUME 82 fL (79-100); MONO # 0.3 x10^3/uL (0.0-1.1); MONO % 8 % (0-9); NEUT # 1.6 x10^3/uL (1.8-7.7); NEUT % 43 % (31-73); PLATELET COUNT 224 x10^3/uL (140-400); RED CELL DISTRIBUTION WIDTH 14.3 % (11.5-14.5); WHITE BLOOD COUNT 3.8 x10^3/uL (4.0-11.0)
[2020-04-25 03:56] LABS: CALCIUM 8.7 mg/dL (8.5-10.1); CREATININE 1.4 mg/dL (0.7-1.3); GFR 59.3
[2020-04-25 04:04] LABS: ALBUMIN 3.6 g/dL (3.4-5.0); ALBUMIN/GLOBULIN RATIO 1.1 (1.0-1.7); TOTAL BILIRUBIN 0.7 mg/dL (0.2-1.0)
--- NOTE | 2020-04-25 04:18 | RAD ---
AP chest x-ray HISTORY: Right-sided chest pain. FINDINGS: Heart size normal. Mediastinal silhouette is normal. No pneumothorax, pulmonary opacities or pleural effusions. Mild upper thoracic scoliosis. IMPRESSION: No acute process. Electronically signed by: Sanjeev Jarquin MD (04/25/2020 4:15 AM) [facility]
[2020-04-25] MEDS ORDERED: IOHEXOL 350 MG/ML 100 ML VIAL. IV ONE (04:30)
[2020-04-25] MEDS ORDERED: CONTRAST GIVEN. MC PRN (04:30)
--- NOTE | 2020-04-25 04:35 | EKG ---
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
--- NOTE | 2020-04-25 05:30 | RAD ---
CT angiography chest and abdomen with contrast HISTORY: Right lower rib pain, right flank pain. TECHNIQUE: CT imaging of the chest and abdomen with 70 mL Omnipaque 350 intravenous contrast with thin 3-D MIP reconstructions of the arteries acquired. Chest findings: Coronary calcified plaque. No thoracic aortic aneurysm or dissection. Ascending aorta diameter 3.3 cm. Heart size normal. Pulmonary vessels and esophagus are unremarkable. No adenopathy in the chest. 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 Calcified granulomas left upper lobe and hilum. No pneumothorax or pleural effusions. There are some areas of subpleural groundglass density and interstitial reticulation at the right upper and lower lobes and right middle lobe some of which are nondependent. Bones are unremarkable. Abdomen findings: L2 vertebral body demonstrates diffuse heterogeneous bone lysis and sclerosis, there may also be subtle enlargement of the vertebral body. There is also similar changes of bony sclerosis and lysis with cortical and trabecular bone thickening at the upper sacrum and iliac crests. No abdominal aortic aneurysm or dissection. No significant stenosis or occlusion. Minimal calcified plaque of the infrarenal aorta. Aorta diameter 2.2 cm. Indeterminate subcentimeter renal hypodensities too small to characterize due to volume averaging statistically most likely small cyst no follow-up necessary per ACR criteria. Subcentimeter right renal interpolar 1.3 cm indeterminate hypodense lesion measuring 27 units image 104. Left renal upper pole exophytic 1.5 cm fluid density cyst density of 17 units. The pancreatic duct appears be dilated at the body and tail diameter 5 mm at the body and tapering towards the tail. Liver, gallbladder, spleen, adrenal glands unremarkable. Upper GI tract demonstrates no obstruction or inflammatory change. 3 cm fatty umbilical abdominal wall hernia. Appendix is negative. 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 Lumbar disc disease. IMPRESSION: 1. No thoracic or abdominal aorta aneurysm or dissection. 2. Mild peripheral subpleural heterogeneous groundglass densities and interstitial reticulation at the right lung may indicate infectious or inflammatory process or sequela of chronic interstitial lung disease. Consider follow-up CT imaging in 6 months. 3. Renal cysts. There is also an indeterminate right renal interpolar 1.3 cm hypodense lesion with internal density of 27 units. This could represent a dense cyst or solid mass. Per ACR guidelines for renal lesions of this size further assessment with MR imaging could be considered. 4. Heterogeneous bony sclerosis and lysis with cortical and trabecular bone thickening and mild bone enlargement of the L2 vertebra with similar changes at the upper pelvis, typical of Paget's disease. These areas were associated with increased bone uptake on bone scan from 2009. 5. Mild dilation of the pancreatic duct at the body and tail with a diameter 5 mm. Exposure: One or more of the following individualized dose reduction techniques were utilized for this examination: 1. Automated exposure control 2. Adjustment of the mA and/or kV according to patient size 3. Use of iterative reconstruction technique Electronically signed by: Sanjeev Jarquin MD (04/25/2020 5:27 AM) [facility]
[2020-04-25] MEDS ORDERED: IBUP-1007 PO (06:00)
[2020-04-25] MEDS ORDERED: AZIT250T PO (06:00)
[2020-04-25 07:49] VITALS: BP 146/89
--- NOTE | 2020-04-25 08:10 | RAD ---
EXAM: ABDOMINAL ULTRASOUND. HISTORY: Right upper quadrant abdominal pain. COMPARISON: CT angiogram chest abdomen of 04/25/2020. FINDINGS: Sonographic evaluation of the abdomen was performed. The liver is diffusely echogenic, compatible fatty infiltration. There are no focal lesions. The spleen measures 7.5 cm. The gallbladder contains a small amount of layering sludge without evidence of stones, wall thickening or pericholecystic fluid. There is no sonographic Al sign. The common duct measures 4 mm. Pancreas is obscured by bowel gas. The right kidney measures 10.5 x 5.0 x 4.4 cm. Cortical thickness and echogenicity are preserved. There is no hydronephrosis. The left kidney measures 10.0 x 4.8 x 4.6 cm. Cortical thickness and echogenicity are preserved. There is no hydronephrosis. Visualized IVC is unremarkable. Abdominal aorta is obscured by bowel gas. IMPRESSION: 1. Biliary sludge in the gallbladder and mild hepatic steatosis. Otherwise unremarkable complete abdominal ultrasound. Electronically signed by: Josey Mckeon MD (04/25/2020 8:07 AM) [id number]
--- NOTE | 2020-04-26 10:06 | NUR ---
IP: Attempted to call COVID negative results. Left voicemail to return my call.
== END 2020-04-25 08:30 | disposition home or self-care (01) ==
LOC: ER 02:57
DX: R07.81 Pleurodynia (principal); Z20.828 Contact with and (suspected) exposure to other viral communicable diseases; R10.11 Right upper quadrant pain; R06.02 Shortness of breath; M48.04 Spinal stenosis, thoracic region; Z87.891 Personal history of nicotine dependence
CPT/HCPCS: 36415; 71045; 71275; 74175; 76700; 80053; 83690; 83880; 84484; 85025; 85379; 93005; 96374; 99285; J1885; Q9967; U0003